=== PATIENT | female | born 1995 | race African-American/Black ===

== ENCOUNTER 2021-03-24 16:57 | Emergency (ER) | payer OTHER ==
[~2021-03-24] VITALS: Ht 160 cm; Wt 77.1 kg
[~2021-03-24 16:57] MED LIST: NOHOMEMEDICATIONS
[2021-03-24 17:30] LABS: BASOPHILS 0.7 % (0.0-2.0); EOSINOPHILS 0.6 % (0.0-3.0); HEMOGLOBIN 11.6 gm/dL (12.0-15.0); LYMPHOCYTES 20.3 % (24.0-44.0); MCHC 31.3 g/dL (28.0-37.0); MCV 76.6 fL (80.0-100.0); MONOCYTES 6.1 % (1.0-8.0); PLATELET COUNT 323 thou/uL (150-400); POLYS 72.3 % (36.0-66.0); RBC 4.83 mil/uL (4.20-5.00); RDW 17.9 % (10.5-14.5); WBC 9.7 thou/uL (4.0-11.0)
[2021-03-24] MEDS ORDERED: CARAFATE 1 GM TA1 G1 PO (17:44)
[2021-03-24] MEDS ORDERED: OMEPRAZOLE40 MG PO (17:44)
[2021-03-24 17:48] VITALS: BP 144/97
== END 2021-03-24 17:48 | disposition home or self-care (01) ==
LOC: ER 16:57
PROVIDERS: Nurse Practitioner
DX: R10.13 Epigastric pain (principal)

== ENCOUNTER 2021-08-07 16:06 | Emergency (ER) | payer OTHER ==
[~2021-08-07] VITALS: Ht 160 cm; Wt 72.6 kg
[~2021-08-07 16:06] MED LIST changes: +CARAFATE 1 GM TA1 G1 PO; +OMEPRAZOLE40 MG PO
[2021-08-07 17:11] LABS: ABSOLUTE NEUTROPHILS 9.3 thou/uL (1.4-8.2); BASOPHILS 0.6 % (0.0-2.0); EOSINOPHILS 0.2 % (0.0-3.0); HEMATOCRIT 34.7 % (37.0-47.0); HEMOGLOBIN 11.1 gm/dL (12.0-15.0); LYMPHOCYTES 10.2 % (24.0-44.0); MCH 23.6 pg (26.0-34.0); MCV 73.8 fL (80.0-100.0); MONOCYTES 3.6 % (1.0-8.0); PLATELET COUNT 342 thou/uL (150-400); POLYS 85.4 % (36.0-66.0); RBC 4.71 mil/uL (4.20-5.00); WBC 10.9 thou/uL (4.0-11.0)
[2021-08-07 17:19] LABS: CREATININE 0.9 mg/dL (0.6-1.0); POTASSIUM 3.8 mmol/L (3.5-5.1)
[2021-08-07 17:25] LABS: ALBUMIN 3.7 g/dL (3.4-5.0); TOTAL PROTEIN 7.9 g/dL (6.4-8.2)
[2021-08-07] MEDS ORDERED: APAP W/CODEINE1 TA2 PO (17:33)
[2021-08-07] MEDS ORDERED: PEPCID20 MG PO (17:33)
[2021-08-07 17:35] VITALS: BP 118/77
== END 2021-08-07 17:35 | disposition home or self-care (01) ==
LOC: ER 16:06
PROVIDERS: Emergency Medicine
DX: R10.13 Epigastric pain (principal)